=== PATIENT | male | born 1965 | race Hispanic/Latino ===

== ENCOUNTER 2021-01-31 07:56 | Day surgery (SDC) | payer OTHER ==
[2021-01-28 16:20] LABS: BASOPHILS % (AUTO) 0.8 % (0.0-5.0); EOSINOPHILS % (AUTO) 1.8 % (0.0-8.0); LYMPHOCYTES % (AUTO) 38.3 % (21.0-51.0); MEAN CORPUSCULAR HEMOGLOBIN 32.3 pg (27.0-33.0); MEAN CORPUSCULAR HGB CONC 36.3 g/dL (32.0-36.0); MONOCYTES % (AUTO) 7.7 % (3.0-13.0); NEUTROPHILS % (AUTO) 51.1 % (40.0-77.0); PLATELET COUNT (AUTO) 224 K/uL (130-400); RED BLOOD CELL COUNT(AUTO) 5.17 MIL/uL (4.50-6.20); RED CELL DISTRIBUTION WIDTH 11.8 % (11.0-15.5); WHITE BLOOD COUNT (AUTO) 8.9 K/uL (4.8-10.8)
[2021-01-28 16:22] LABS: APPEARANCE,URINE Clear (CLEAR); BILIRUBIN,URINE Negative (NEGATIVE); COLOR,URINE Yellow (YELLOW); GLUCOSE, URINE (UA) >=1000 mg/dL (NEGATIVE); KETONES,URINE Negative (NEGATIVE); LEUKOCYTE ESTERASE ,URINE Negative (NEGATIVE); NITRATE,URINE Negative (NEGATIVE); OCCULT BLOOD,URINE Negative (NEGATIVE); PH,URINE 5.5 (5.0-8.0); PROTEIN,URINE Negative (NEGATIVE)
[2021-01-28 16:28] LABS: CREATININE 0.8 mg/dL (0.5-1.5)
[2021-01-28 16:34] LABS: PROTHROMBIN TIME 10.9 SEC (9.6-11.6)
[2021-01-28 16:35] LABS: BACTERIA,URINE Rare /HPF (None Seen); PARTIAL THROMBOPLASTIN TIME 30.5 SEC (26.3-35.5); RBC,URINE 0-1 /HPF (0-1); SQUAMOUS EPITHELIAL CELL,UR Rare /HPF (0-2); WBC,URINE 0-1 /HPF (0-1)
[2021-01-30 11:21] VITALS: BP 181/87
[2021-01-31] VITALS (11 sets, daily range): BP systolic 123–166; BP diastolic 52–94
[~2021-01-31] VITALS: Ht 167.6 cm; Wt 106.8 kg
[~2021-01-31 07:56] MED LIST: AEC81 PO; CLOP75TA32 PO; DAPA5TAB PO; SACU1TAB7 PO
[2021-01-31] MEDS ORDERED: SODIUM CHLORIDE 0.9% 1000ML 1,000 ML IV SCH ×2 (08:00→13:30)
[2021-01-31] MEDS ORDERED: FENTANYL CITRATE PF 50 MCG/1 ML 2ML VIAL ONE (12:14)
[2021-01-31] MEDS ORDERED: MIDAZOLAM HCL 1 MG/ML 2ML VIAL ONE (12:14)
[2021-01-31] MEDS ORDERED: SODIUM BICARB 50MEQ 50ML VIAL 50 ML ONE (12:14)
[2021-01-31] MEDS ORDERED: LIDOCAINE HCL 2% 20ML ONE (12:15)
[2021-01-31] MEDS ORDERED: NITROGLYCERIN 2 MG/VIAL VIAL IV ONE (12:15)
[2021-01-31] MEDS ORDERED: HEPARIN SODIUM 1000UNIT/ML 10ML VIAL ONE (12:15)
[2021-01-31] MEDS ORDERED: NICARDIPINE HCL 25 MG/10 ML ML IV ONE (12:15)
[2021-01-31] MEDS ORDERED: IOHEXOL-350 50ML VIAL IV ONE (12:22)
[2021-01-31] MEDS ORDERED: IOHEXOL 350 MG/ML 100ML INFUS..BTL IV ONE (12:23)
[2021-01-31] MEDS ORDERED: METO-408 PO (13:27)
[2021-01-31] MEDS ORDERED: NITR0.4T50 SL (13:27)
[2021-01-31] MEDS ORDERED: GLUCAGON 1MG KIT 1 MG ML IM PRN (13:30)
[2021-01-31] MEDS ORDERED: DEXTROSE 50%-WATER 50 ML DISP.SYRIN IV PRN (13:30)
[2021-01-31] MEDS ORDERED: INSULIN LISPRO 100 UNIT/ML 3ML SQ SCH ×8 (16:30→18:00)
[2021-01-31] MEDS ORDERED: INSULIN HUMULIN R 100 UNIT/ML 3ML SQ SCH ×8 (16:30→18:00)
== END 2021-01-31 17:30 | disposition home or self-care (01) ==
LOC: DAH 07:56
PROVIDERS: ATTEND Internal Medicine Cardiovascular Disease
DX: I25.10 Atherosclerotic heart disease of native coronary artery without angina pectoris (principal); I25.82 Chronic total occlusion of coronary artery; I50.42 Chronic combined systolic (congestive) and diastolic (congestive) heart failure; E11.9 Type 2 diabetes mellitus without complications; I11.0 Hypertensive heart disease with heart failure; E78.5 Hyperlipidemia, unspecified; M79.10 Myalgia, unspecified site; I25.6 Silent myocardial ischemia; Z86.73 Personal history of transient ischemic attack (TIA), and cerebral infarction without residual deficits; Z82.49 Family history of ischemic heart disease and other diseases of the circulatory system; Z79.82 Long term (current) use of aspirin; Z79.84 Long term (current) use of oral hypoglycemic drugs; Z79.899 Other long term (current) drug therapy; Z98.890 Other specified postprocedural states; Z79.01 Long term (current) use of anticoagulants
CPT/HCPCS: 36415; 71045; 80048; 81001; 82948 ×2; 85025; 85610; 85730; 93005; 93458; 93880; 94010; A4215; A4216; A4221; A4222; A4223 ×3; A4606; A4663; C1769; C1874; C1894; J1644 ×2; J2250; J3010; J3490 ×4; Q9965; Q9967 ×2; 99156; 99157

== ENCOUNTER 2021-02-27 10:00 | Inpatient (IN) | payer OTHER ==
[~2021-02-27] VITALS: Ht 170.2 cm; Wt 110.7 kg
[~2021-02-27 10:00] MED LIST changes: +METO-408 PO; +NITR0.4T50 SL; +VITAMIN D PO
[2021-02-27 10:54] LABS: BASOPHILS % (AUTO) 0.8 % (0.0-5.0); EOSINOPHILS % (AUTO) 2.3 % (0.0-8.0); HEMATOCRIT 44.9 % (42-54); LYMPHOCYTES % (AUTO) 35.1 % (21.0-51.0); MEAN CORPUSCULAR HEMOGLOBIN 32.8 pg (27.0-33.0); MEAN CORPUSCULAR HGB CONC 36.7 g/dL (32.0-36.0); MEAN CORPUSCULAR VOLUME 89.3 fL (79-99); MONOCYTES % (AUTO) 7.5 % (3.0-13.0); NEUTROPHILS % (AUTO) 53.8 % (40.0-77.0); PLATELET COUNT (AUTO) 211 K/uL (130-400); RED BLOOD CELL COUNT(AUTO) 5.03 MIL/uL (4.50-6.20); RED CELL DISTRIBUTION WIDTH 12.1 % (11.0-15.5); WHITE BLOOD COUNT (AUTO) 6.6 K/uL (4.8-10.8)
[2021-02-27 11:04] LABS: HEMOGLOBIN A1C 7.8 % (4.0-6.0)
[2021-02-27 11:06] LABS: INR 0.97 (0.85-1.15); PROTHROMBIN TIME 10.6 SEC (9.6-11.6)
[2021-02-27 11:07] LABS: PARTIAL THROMBOPLASTIN TIME 28.1 SEC (26.3-35.5)
[2021-02-27 11:09] LABS: ALBUMIN 4.1 g/dL (3.5-5.0); BILIRUBIN,TOTAL 0.4 mg/dL (0.2-1.0); CREATININE 0.9 mg/dL (0.5-1.5); POTASSIUM 4.3 mmol/L (3.5-5.1); TOTAL PROTEIN, SERUM 7.2 g/dL (6.0-8.3)
[2021-03-06] VITALS (12 sets, daily range): BP systolic 93–178; BP diastolic 51–104
[2021-03-06] MEDS ORDERED: CLINDAMYCIN IVPB 900MG/50ML 0 ML IV ONE (06:22)
[2021-03-06] MEDS ORDERED: CEFAZOLIN SODIUM 1 GM VIAL ONE ×2 (06:22→07:03)
[2021-03-06] MEDS ORDERED: 0.9%NACL 1000ML 1,000 ML IV ONE (06:23)
[2021-03-06] MEDS ORDERED: PAPAVERINE HCL 30 MG/ML 2ML VIAL ONE (07:01)
[2021-03-06] MEDS ORDERED: AMINOCAPROIC ACID 5,000MG VIAL 15,000 MG in 0.9% NACL 500ML IV.SOLN 420 ML IV PRN (07:30)
[2021-03-06] MEDS ORDERED: EPINEPHRINE PF 1MG AMP 10 MG in 0.9% NACL 250ML 240 ML IV PRN (07:30)
[2021-03-06] MEDS ORDERED: NOREPINEPHRINE BITARTRATE 8 MG in DEXTROSE 5%-WATER 250 ML IV PRN (07:30)
[2021-03-06] MEDS ORDERED: NITROGLYCERIN 50MG/D5W 250ML 1 BOT ONE (07:39)
[2021-03-06] MEDS ORDERED: LIDOCAINE PF 100MG/5ML (2%) SYRINGE 5ML ONE (08:13)
[2021-03-06] MEDS ORDERED: ESMOLOL HCL 10 MG/ML 10 ML VIAL ONE (08:13)
[2021-03-06] MEDS ORDERED: HEPARIN 10,000 UNIT/10ML (1,000 UNIT/ML) VIAL ONE (08:14)
[2021-03-06] MEDS ORDERED: NOREPINEPHRINE BITARTRATE 1 MG/1 ML ML IV ONE (08:14)
[2021-03-06] MEDS ORDERED: EPINEPHRINE PF 1MG AMP ONE (08:14)
[2021-03-06] MEDS ORDERED: MIDAZOLAM HCL 1 MG/ML 2ML VIAL ONE (08:14)
[2021-03-06] MEDS ORDERED: PROPOFOL 10 MG/ML 20ML VIAL IV ONE (08:14)
[2021-03-06] MEDS ORDERED: ROCURONIUM 10MG/1ML SYR 10 MG/ML ML ONE (08:14)
[2021-03-06] MEDS ORDERED: FENTANYL CITRATE PF 50 MCG/1 ML 20ML VIAL IJ ONE (08:14)
[2021-03-06] MEDS ORDERED: AMINOCAPROIC ACID 5,000MG VIAL ONE (08:14)
[2021-03-06] MEDS ORDERED: SODIUM BICARB 50MEQ 50ML VIAL 150 ML ONE (08:14)
[2021-03-06] MEDS ORDERED: KETAMINE 50MG/ML SYRINGE 50 MG/ML DISP.SYRIN IV ONE (08:15)
[2021-03-06] MEDS: CEFAZOLIN SODIUM 1 GM VIAL IVP ONE ×2 (09:20→09:37)
[2021-03-06 09:48] LABS: ABG BASE EXCESS -1.8 mmol/L (-2.0-3.0); ABG HCO3 23.6 mmol/L (21.0-28.0); ABG OXYGEN SATURATION 99.3 % (95.0-99.0); ABG PCO2 42 mmHg (35-48)
[2021-03-06 11:41] LABS: ABG BASE EXCESS -3.5 mmol/L (-2.0-3.0); ABG HCO3 21.4 mmol/L (21.0-28.0); ABG OXYGEN SATURATION 98.7 % (95.0-99.0); ABG PCO2 38 mmHg (35-48)
[2021-03-06] MEDS ORDERED: SODIUM BICARB 50MEQ 50ML VIAL 100 ML ONE (11:49)
[2021-03-06] MEDS ORDERED: SODIUM BICARB 50MEQ 50ML VIAL 50 ML ONE (11:50)
[2021-03-06] MEDS ORDERED: ASPIRIN 81MG CHEW TAB PO SCH (12:00)
[2021-03-06] MEDS ORDERED: EPHEDRINE SULFATE 50 MG/ML AMPULE ONE (12:14)
[2021-03-06] MEDS ORDERED: MORPHINE 2 MG SYG IV PRN (12:15)
[2021-03-06] MEDS ORDERED: ALBUMIN (HUMAN) 5% 250 ML IV PRN (12:15)
[2021-03-06] MEDS ORDERED: DEXTROSE 50%-WATER 50 ML DISP.SYRIN IV PRN (12:15)
[2021-03-06] MEDS ORDERED: CALCIUM GLUC 1GM 1 GM in 0.9%NACL 50ML 50 ML IV PRN (12:15)
[2021-03-06] MEDS ORDERED: ONDANSETRON 4MG INJ IV PRN (12:15)
[2021-03-06] MEDS ORDERED: 0.9% NACL 500ML IV.SOLN 500 ML IV SCH (12:15)
[2021-03-06] MEDS ORDERED: MORPHINE 4 MG SYG IV PRN (12:15)
[2021-03-06] MEDS ORDERED: NITROGLYCERIN 50MG/D5W 250ML 250 BOT IV SCH (12:15)
[2021-03-06] MEDS ORDERED: 0.9%NACL 10ML VIAL IVP PRN (12:15)
[2021-03-06] MEDS ORDERED: PROPOFOL 1000 MG/100 ML 100 ML IV PRN (12:15)
[2021-03-06] MEDS ORDERED: GLUCAGON 1MG KIT 1 MG ML IM PRN (12:15)
[2021-03-06] MEDS ORDERED: AMINOCAPROIC ACID 5,000MG VIAL 15,000 MG in 0.9% NACL 250ML 250 ML IV SCH (12:15)
[2021-03-06] MEDS ORDERED: NOREPINEPHRIN 4MG/NS 250ML 250 ML IV PRN (12:15)
[2021-03-06] MEDS ORDERED: POTASSIUM CHLORIDE 20MEQ/100ML 100 ML IV PRN (12:15)
[2021-03-06] MEDS ORDERED: EPINEPHRINE PF 1MG AMP 10 MG in DEXTROSE 5%-WATER 250 ML IV PRN (12:15)
[2021-03-06] MEDS ORDERED: 0.9%NACL 1000ML 1,000 ML IV SCH (12:15)
[2021-03-06] MEDS ORDERED: POTASSIUM PHOS 15 mMOL+NS250ML 250 ML IV PRN (12:15)
[2021-03-06] MEDS ORDERED: ACETAMINOPHEN 650 MG SUPPOSITORY RC PRN (12:15)
[2021-03-06 12:46] LABS: HEMATOCRIT 30.8 % (42-54); MEAN CORPUSCULAR HGB CONC 36.7 g/dL (32.0-36.0); MEAN CORPUSCULAR VOLUME 90.1 fL (79-99); PLATELET COUNT (AUTO) 139 K/uL (130-400); RED BLOOD CELL COUNT(AUTO) 3.42 MIL/uL (4.50-6.20); RED CELL DISTRIBUTION WIDTH 12.2 % (11.0-15.5); WHITE BLOOD COUNT (AUTO) 16.2 K/uL (4.8-10.8)
[2021-03-06 12:57] LABS: CREATININE 0.6 mg/dL (0.5-1.5); INR 1.22 (0.85-1.15); PHOSPHORUS 3.7 mg/dL (2.5-4.9); POTASSIUM 3.1 mmol/L (3.5-5.1); PROTHROMBIN TIME 13.1 SEC (9.6-11.6)
[2021-03-06 12:58] LABS: PARTIAL THROMBOPLASTIN TIME 26.5 SEC (26.3-35.5)
[2021-03-06 13:00] LABS: ABG BASE EXCESS -4.4 mmol/L (-2.0-3.0); ABG HCO3 21.3 mmol/L (21.0-28.0); ABG OXYGEN SATURATION 97.5 % (95.0-99.0); ABG PCO2 42 mmHg (35-48)
[2021-03-06] MEDS: SODIUM BICARB 50MEQ 50ML VIAL IV PRN ×2 (13:01→15:32)
[2021-03-06] MEDS: INSULIN REGULAR, HUMAN 3ML 100 UNIT in 0.9%NACL 100ML 99 ML IV SCH ×2 (13:49)
[2021-03-06 14:20] LABS: ABG BASE EXCESS -0.5 mmol/L (-2.0-3.0); ABG HCO3 25.1 mmol/L (21.0-28.0); ABG OXYGEN SATURATION 98.6 % (95.0-99.0); ABG PCO2 45 mmHg (35-48)
[2021-03-06 14:57] LABS: CREATININE 1.1 mg/dL (0.5-1.5); MAGNESIUM 1.4 mg/dL (1.80-2.40); POTASSIUM 4.2 mmol/L (3.5-5.1)
[2021-03-06 15:13] LABS: ABG BASE EXCESS -3.5 mmol/L (-2.0-3.0); ABG HCO3 22.2 mmol/L (21.0-28.0); ABG OXYGEN SATURATION 97.2 % (95.0-99.0); ABG PCO2 42 mmHg (35-48)
[2021-03-06] MEDS: MAGNESIUM 2GM PREMIX 50ML 50 ML IV PRN (15:32)
[2021-03-06] MEDS: CEFAZOLIN SODIUM 1 GM VIAL IV SCH (16:52)
[2021-03-06] MEDS: TRAMADOL HCL 50 MG TABLET PO PRN (18:13)
[2021-03-06] MEDS ORDERED: PHARMACY COMMUNICATION MISC SCH (19:30)
[2021-03-06] MEDS: ATORVASTATIN 40 MG TABLET PO SCH (20:18)
[2021-03-06] MEDS ORDERED: FAMOTIDINE 20MG VIAL IV SCH (21:00)
[2021-03-07] VITALS (30 sets, daily range): BP systolic 103–190; BP diastolic 54–93
[2021-03-07] MEDS: TRAMADOL HCL 50 MG TABLET PO PRN ×4 (00:08→20:18)
[2021-03-07] MEDS: CEFAZOLIN SODIUM 1 GM VIAL IV SCH ×2 (01:13→09:12)
[2021-03-07 04:10] LABS: HEMATOCRIT 37.4 % (42-54); MEAN CORPUSCULAR HEMOGLOBIN 31.9 pg (27.0-33.0); MEAN CORPUSCULAR HGB CONC 34.8 g/dL (32.0-36.0); MEAN CORPUSCULAR VOLUME 91.9 fL (79-99); RED BLOOD CELL COUNT(AUTO) 4.07 MIL/uL (4.50-6.20); RED CELL DISTRIBUTION WIDTH 12.9 % (11.0-15.5); WHITE BLOOD COUNT (AUTO) 13.3 K/uL (4.8-10.8)
[2021-03-07 04:14] LABS: ABG BASE EXCESS 3.6 mmol/L (-2.0-3.0); ABG HCO3 29.6 mmol/L (21.0-28.0); ABG OXYGEN SATURATION 97.1 % (95.0-99.0); ABG PCO2 50 mmHg (35-48)
[2021-03-07 04:23] LABS: INR 0.99 (0.85-1.15); PROTHROMBIN TIME 10.8 SEC (9.6-11.6)
[2021-03-07 04:24] LABS: PARTIAL THROMBOPLASTIN TIME 25.2 SEC (26.3-35.5)
[2021-03-07 04:25] LABS: CREATININE 0.9 mg/dL (0.5-1.5); MAGNESIUM 2.1 mg/dL (1.80-2.40); PHOSPHORUS 4.6 mg/dL (2.5-4.9); POTASSIUM 4.6 mmol/L (3.5-5.1)
[2021-03-07] MEDS: INSULIN REGULAR, HUMAN 3ML 100 UNIT in 0.9%NACL 100ML 99 ML IV SCH ×2 (07:54)
[2021-03-07] MEDS: ASPIRIN 325MG EC TAB PO SCH (08:08)
[2021-03-07] MEDS ORDERED: FAMOTIDINE 20MG TAB ONE (08:35)
[2021-03-07] MEDS: FUROSEMIDE 20MG VIAL IV SCH ×2 (08:37→21:26)
[2021-03-07] MEDS: FAMOTIDINE 20MG TAB PO SCH ×2 (08:48→21:24)
[2021-03-07] MEDS: ATORVASTATIN 40 MG TABLET PO SCH (21:24)
[2021-03-07] MEDS: METOPROLOL TARTRATE 25 MG TAB PO SCH (21:24)
[2021-03-08] VITALS (15 sets, daily range): BP systolic 103–153; BP diastolic 59–92
[2021-03-08] MEDS: TRAMADOL HCL 50 MG TABLET PO PRN ×2 (03:10→08:17)
[2021-03-08 03:49] LABS: BASOPHILS % (AUTO) 0.3 % (0.0-5.0); EOSINOPHILS % (AUTO) 0.1 % (0.0-8.0); HEMATOCRIT 33.1 % (42-54); LYMPHOCYTES % (AUTO) 11.7 % (21.0-51.0); MEAN CORPUSCULAR HEMOGLOBIN 32.2 pg (27.0-33.0); MEAN CORPUSCULAR HGB CONC 34.7 g/dL (32.0-36.0); MEAN CORPUSCULAR VOLUME 92.7 fL (79-99); MONOCYTES % (AUTO) 9.6 % (3.0-13.0); NEUTROPHILS % (AUTO) 77.8 % (40.0-77.0); PLATELET COUNT (AUTO) 160 K/uL (130-400); RED BLOOD CELL COUNT(AUTO) 3.57 MIL/uL (4.50-6.20); RED CELL DISTRIBUTION WIDTH 12.8 % (11.0-15.5); WHITE BLOOD COUNT (AUTO) 15.2 K/uL (4.8-10.8)
[2021-03-08 03:59] LABS: CREATININE 0.9 mg/dL (0.5-1.5); MAGNESIUM 1.8 mg/dL (1.80-2.40); POTASSIUM 4.1 mmol/L (3.5-5.1)
[2021-03-08] MEDS: MAGNESIUM 2GM PREMIX 50ML 50 ML IV PRN (04:50)
[2021-03-08] MEDS: METOPROLOL TARTRATE 25 MG TAB PO SCH ×2 (08:18→20:04)
[2021-03-08] MEDS: ASPIRIN 325MG EC TAB PO SCH (08:18)
[2021-03-08] MEDS ORDERED: METOPROLOL TARTRATE 25 MG TAB PO SCH (09:00)
[2021-03-08] MEDS: FUROSEMIDE 20 MG TABLET PO SCH ×2 (09:08→17:30)
[2021-03-08] MEDS: FAMOTIDINE 20MG TAB PO SCH ×2 (09:09→20:04)
[2021-03-08] MEDS: ATORVASTATIN 40 MG TABLET PO SCH (20:04)
[2021-03-09 02:32] VITALS: BP 139/80
[2021-03-09 04:49] LABS: HEMATOCRIT 28.2 % (42-54); MEAN CORPUSCULAR HEMOGLOBIN 33.1 pg (27.0-33.0); MEAN CORPUSCULAR HGB CONC 35.8 g/dL (32.0-36.0); MEAN CORPUSCULAR VOLUME 92.5 fL (79-99); RED BLOOD CELL COUNT(AUTO) 3.05 MIL/uL (4.50-6.20); RED CELL DISTRIBUTION WIDTH 12.6 % (11.0-15.5); WHITE BLOOD COUNT (AUTO) 11.7 K/uL (4.8-10.8)
[2021-03-09 05:03] LABS: CREATININE 0.8 mg/dL (0.5-1.5); POTASSIUM 3.9 mmol/L (3.5-5.1)
[2021-03-09] MEDS: ACETAMINOPHEN 325 MG TAB PO PRN (06:47)
[2021-03-09] MEDS ORDERED: GLUCAGON 1MG KIT 1 MG ML IM PRN (07:30)
[2021-03-09] MEDS ORDERED: DEXTROSE 50%-WATER 50 ML DISP.SYRIN IV PRN (07:30)
[2021-03-09 08:32] VITALS: BP 133/78
[2021-03-09] MEDS: **HM** FARXIGA 5MG PO SCH (09:00)
[2021-03-09] MEDS: FUROSEMIDE 20 MG TABLET PO SCH ×2 (09:22→16:20)
[2021-03-09] MEDS: FAMOTIDINE 20MG TAB PO SCH ×2 (09:22→20:50)
[2021-03-09] MEDS: METOPROLOL TARTRATE 25 MG TAB PO SCH ×2 (09:22→20:50)
[2021-03-09] MEDS: ASPIRIN 325MG EC TAB PO SCH (09:22)
[2021-03-09] MEDS: ENOXAPARIN SODIUM 30 MG/0.3 ML SQ SCH (09:23)
[2021-03-09] MEDS: INSULIN HUMULIN R 100 UNIT/ML 3ML SQ SCH ×4 (09:24→20:55)
[2021-03-09 11:48] VITALS: BP 128/75
[2021-03-09 16:00] VITALS: BP 118/70
[2021-03-09 19:17] VITALS: BP 138/85
[2021-03-09] MEDS: LISINOPRIL 5 MG TABLET PO SCH (20:50)
[2021-03-09] MEDS: ATORVASTATIN 40 MG TABLET PO SCH (20:50)
[2021-03-09 23:54] VITALS: BP 143/85
[2021-03-10 03:22] VITALS: BP 130/67
[2021-03-10 04:26] LABS: BASOPHILS % (AUTO) 0.4 % (0.0-5.0); EOSINOPHILS % (AUTO) 2.2 % (0.0-8.0); HEMATOCRIT 27.8 % (42-54); LYMPHOCYTES % (AUTO) 17.7 % (21.0-51.0); MEAN CORPUSCULAR HEMOGLOBIN 33.1 pg (27.0-33.0); MEAN CORPUSCULAR HGB CONC 36.3 g/dL (32.0-36.0); MEAN CORPUSCULAR VOLUME 91.1 fL (79-99); MONOCYTES % (AUTO) 9.6 % (3.0-13.0); NEUTROPHILS % (AUTO) 69.7 % (40.0-77.0); PLATELET COUNT (AUTO) 177 K/uL (130-400); RED BLOOD CELL COUNT(AUTO) 3.05 MIL/uL (4.50-6.20); RED CELL DISTRIBUTION WIDTH 12.4 % (11.0-15.5); WHITE BLOOD COUNT (AUTO) 10.9 K/uL (4.8-10.8)
[2021-03-10 04:43] LABS: CREATININE 0.7 mg/dL (0.5-1.5); POTASSIUM 4.1 mmol/L (3.5-5.1)
[2021-03-10] MEDS: INSULIN HUMULIN R 100 UNIT/ML 3ML SQ SCH ×2 (06:40→11:43)
[2021-03-10 08:57] VITALS: BP 128/68
[2021-03-10] MEDS: **HM** FARXIGA 5MG PO SCH (09:00)
[2021-03-10] MEDS: LISINOPRIL 5 MG TABLET PO SCH (09:07)
[2021-03-10] MEDS: ASPIRIN 325MG EC TAB PO SCH (09:07)
[2021-03-10] MEDS: FAMOTIDINE 20MG TAB PO SCH (09:07)
[2021-03-10] MEDS: METOPROLOL TARTRATE 25 MG TAB PO SCH (09:07)
[2021-03-10] MEDS: FUROSEMIDE 20 MG TABLET PO SCH (09:08)
[2021-03-10] MEDS: ENOXAPARIN SODIUM 30 MG/0.3 ML SQ SCH (09:09)
[2021-03-10] MEDS: ACETAMINOPHEN 325 MG TAB PO PRN (10:34)
[2021-03-10] MEDS ORDERED: ACETAMINOPHEN 325 MG TAB PO PRN (10:45)
[2021-03-10 13:36] VITALS: BP 128/71
[2021-03-10] MEDS ORDERED: NEOMY SULF/BACITRAC ZN/POLY OINT 30GM TUBE TP SCH (14:00)
[2021-03-10] MEDS ORDERED: FURO-152 PO (15:27)
== END 2021-03-10 16:15 | disposition home or self-care (01) | DRG 235 ==
LOC: EDSTATUS 10:00 → DAHIP 03-06 06:07 → 2CV 03-06 11:18 → 2CH 03-07 06:07 → 4BH 03-08 10:44
PROVIDERS: ADMIT Thoracic Surgery (Cardiothoracic Vascular Surgery); ATTEND Thoracic Surgery (Cardiothoracic Vascular Surgery)
PROC: 02100Z9 Bypass Coronary Artery, One Artery from Left Internal Mammary, Open Approach (ICD-10-PCS; principal; 2021-03-06 09:01)
PROC: 021109W Bypass Coronary Artery, Two Arteries from Aorta with Autologous Venous Tissue, Open Approach (ICD-10-PCS; 2021-03-06 09:01)
PROC: 06BQ4ZZ Excision of Left Saphenous Vein, Percutaneous Endoscopic Approach (ICD-10-PCS; 2021-03-06 09:01)
DX: I25.10 Atherosclerotic heart disease of native coronary artery without angina pectoris (principal); U07.1 COVID-19; J12.82 Pneumonia due to coronavirus disease 2019; G93.41 Metabolic encephalopathy; I50.42 Chronic combined systolic (congestive) and diastolic (congestive) heart failure; E11.9 Type 2 diabetes mellitus without complications; E78.5 Hyperlipidemia, unspecified; G47.00 Insomnia, unspecified; G93.89 Other specified disorders of brain; I11.0 Hypertensive heart disease with heart failure; G47.30 Sleep apnea, unspecified; E87.70 Fluid overload, unspecified; Z20.822 Contact with and (suspected) exposure to COVID-19; Z86.73 Personal history of transient ischemic attack (TIA), and cerebral infarction without residual deficits; Z79.899 Other long term (current) drug therapy; Z82.49 Family history of ischemic heart disease and other diseases of the circulatory system; Z83.3 Family history of diabetes mellitus; Z82.3 Family history of stroke
CPT/HCPCS: 36415; 70450; 71045; 71046; 80048; 80053; 80061; 82435; 82803; 82947; 82948; 83036; 83605; 83735; 84100; 84132; 84295; 85018; 85025; 85027; 85347; 85610; 85730; 86850; 86900; 86901; 86923; 87426; 93005; 94002; 94010; 94150; 97039; A7048; G0378; J0171; J0690; J1644; J1650; J1815; J1940; J2001; J2250; J2440; J2704; J3010; J3475; J3480; J3490; J7030; J7040; U0003